=== PATIENT | male | born 1965 | race Caucasian/White ===

== ENCOUNTER 2022-06-15 13:56 | Outpatient (CLI) | payer MEDICAID, SELFPAY | END 2022-06-15 13:57 | disposition home or self-care (01) | PROVIDERS: PCP Family Medicine; Visit Provider Family Medicine | DX: M17.11 Unilateral primary osteoarthritis, right knee (principal); M25.561 Pain in right knee | CPT/HCPCS: 64454 ==

== ENCOUNTER 2022-07-06 12:03 | Outpatient (CLI) | payer MEDICAID, SELFPAY | END 2022-07-06 12:04 | disposition home or self-care (01) | PROVIDERS: PCP Family Medicine; Visit Provider Family Medicine | DX: M25.561 Pain in right knee (principal); G89.29 Other chronic pain | CPT/HCPCS: 64624; J2250; J3010 ==